=== PATIENT | female | born 1990 | race Two or more races ===

== ENCOUNTER 2016-05-07 14:00 | Emergency (ER) | payer OTHER ==
[2016-05-07 14:31] VITALS: TEMP 97.8; BMI 24.3
--- NOTE | 2016-05-07 15:26 | PDOC ---
History of Present Illness - General Chief Complaint: Pain, Acute Stated Complaint: PAIN/ DIFFICULTY URINATING Time Seen by Provider: 05/07/16 14:58 History Source: Patient Exam Limitations: No Limitations - History of Present Illness Initial Comments: CHIEF COMPLAINT: 26 y/o afebrile [id number] c/o lower pelvic pain and abnormal vaginal discharge. HISTORY OF PRESENT ILLNESS: The patient states she's had intermittent pelvic pain for the past 15 days. Today it became worse. She has also had some clear/ white vaginal discharge so she treated it with an OTC cream for 3 days with little relief. Her LMP was 10 days ago. She denies f/c, n/v/d, CP, SOB, back pain, hematuria, dysuria. Vital signs on arrival are within normal limits. REVIEW OF SYSTEMS: GENERAL/CONSTITUTIONAL: No fever/chills. No weakness. No weight change. GASTROINTESTINAL: +pelvic pain. No nausea, vomiting, diarrhea. GENITOURINARY: No dysuria, frequency, or change in urination. +white vaginal discharge. MUSCULOSKELETAL: No joint or muscle swelling or pain. No neck or back pain. SKIN: No rash or easy bruising. NEUROLOGIC: No headache, vertigo, loss of consciousness, or loss of sensation. PHYSICAL EXAM: GENERAL: The patient is awake, alert, and fully oriented, in no acute distress. She is well appearing and ambulatory. HEAD: Normal with no signs of trauma. ABDOMEN: Soft, non-distended, TTP of suprapubic and b/l pelvis. No rebound, guarding or rigidity. No masses. VAGINAL: NEUROLOGICAL: Normal speech, normal gait. CN II-XII grossly intact. SKIN: Warm, dry, normal turgor, no rashes or lesions noted. Past History - Past Medical History Allergies/Adverse Reactions: Allergies Allergy/AdvReac Type Severity Reaction Status Date / Time Penicillins Allergy Mild Verified 05/07/16 14:26 Home Medications: Ambulatory Orders Metronidazole [Flagyl -] 500 mg PO BID #14 tablet 05/07/16 Asthma: No Cancer: No Cardiac Disorders: No Diabetes: No HTN: No Seizures: No Thyroid Disease: No - Psycho/Social/Smoking Cessation Hx Suicidal Ideation: No Smoking History: Never smoked Have you smoked in the past 12 months: No Hx Alcohol Use: No Drug/Substance Use Hx: No Hx Substance Use Treatment: No *Physical Exam - Vital Signs Last Vital Signs Temp Pulse Resp BP Pulse Ox 97.8 F 71 19 121/78 100 05/07/16 14:27 05/07/16 14:27 05/07/16 14:27 05/07/16 14:27 05/07/16 14:27 Medical Decision Making - Medical Decision Making A/P: 26 y/o female with pelvic pain for 15 days and white vaginal discharge. Ultrasound ok Will give IM Toradol for pain. Will discharge to home with rx for metronidazole for BV. Instructed the patient to avoid drinking alcohol while taking it. Instructed the patient to take 600mg of Ibuprofen for pain with food every 6 hours and f/u with her [employer] [facility] [employer] (she has a scheduled appointment) on her scheduled appointment. Instructed her we will call her with STD results and instructed her to return to the ER with any worsening or concerning symptoms. The patient verbalizes understanding of all instructions, has no further questions and is awaiting discharge. *DC/Admit/Observation/Transfer Diagnosis at time of Disposition: Bacterial vaginosis - Discharge Dispostion Disposition: HOME Condition at time of disposition: Good - Patient Instructions Printed Discharge Instructions: DI for Bacterial Vaginosis Additional Instructions: Discharge Instructions: -Take antibiotics as prescribed; do not drink while taking the medication -Take 600mg of Ibuprofen every 6 hours for pain with food -Follow up with your [employer] [facility] [facility] [employer] as soon as possible -Return to the ER with any worsening or concerning symptoms Print Language: KINYARWANDA
[2016-05-07 15:42] LABS: URINE APPEARANCE CLEAR; URINE BILIRUBIN NEGATIVE (NEGATIVE); URINE BLOOD NEGATIVE (NEGATIVE); URINE COLOR STRAW; URINE GLUCOSE (UA) NEGATIVE (NEGATIVE); URINE KETONE NEGATIVE (NEGATIVE); URINE LEUK ESTERASE NEGATIVE (NEGATIVE); URINE NITRITE NEGATIVE (NEGATIVE); URINE PROTEIN NEGATIVE (NEGATIVE); URINE UROBILINOGEN NEGATIVE E.U./dl (0.2-1.0)
[2016-05-07] MEDS ORDERED: KETOROLAC TROMETHAMINE 60 MG/2 ML VIAL IM ONE (17:01)
[2016-05-07] MEDS ORDERED: metroNIDAZOLE 500 MG TABLET PO ONE (18:25)
[2016-05-07 18:45] VITALS: BP 122/74; PULSE 75
== END 2016-05-07 18:44 | disposition home or self-care (01) ==
LOC: JER 14:00
PROC: 3E0233Z Introduction of Anti-inflammatory into Muscle, Percutaneous Approach (ICD-10-PCS; principal; 2016-05-07)
DX: N76.0 Acute vaginitis (principal); B96.89 Other specified bacterial agents as the cause of diseases classified elsewhere
CPT/HCPCS: 36415; 76830-TC; 81003; 84703; 87086; 87186; 87491; 87591; 96372; 99283-25

== ENCOUNTER 2017-12-06 04:39 | Emergency (ER) | payer OTHER ==
--- NOTE | 2017-12-06 04:55 | PDOC ---
History of Present Illness - General Stated Complaint: HEADACHE Time Seen by Provider: 12/06/17 04:55 History Source: Patient Exam Limitations: No Limitations - History of Present Illness Initial Comments: 12/06/17 05:17 HPI and ROS performed via phone distributor advertising material - [id number]. 27 year old female with PMH headaches presenting to ED for headache since 2144 yesterday. She describes the headache as slowly progressing, originating while she was cooking food. She states that her headaches usually regress with Advil, but after she took an Advil PM last night when her headache began, her symptoms did not resolve. She admits to nausea, photophobia, sensitivity to sound, eye tingling, blurry vision. She denies fever, chills, vomiting, abdominal pain, chest pain, syncope, head injury. PCP - none Allergies - NKDA Denies nicotine use. Denies everyday etoh use. Denies illicit drug use. Past History - Past Medical History Allergies/Adverse Reactions: Allergies Allergy/AdvReac Type Severity Reaction Status Date / Time Penicillins Allergy Mild Verified 12/06/17 05:30 Home Medications: Ambulatory Orders NK [No Known Home Medication] 12/06/17 Asthma: No Cancer: No Cardiac Disorders: No Diabetes: No HTN: No Seizures: No Thyroid Disease: No - Surgical History Abdominal Surgery: Yes (liposuction) - Reproductive History Cervical CA: No Dysfunctional Uterine Bleeding: No Ectopic : No Endometrial CA: No Polycystic Ovaries: No Tubal Ligation: No - Immunization History Immunization Up to Date: No - Suicide/Smoking/Psychosocial Hx Smoking History: Never smoked Have you smoked in the past 12 months: No Hx Alcohol Use: No Drug/Substance Use Hx: No Substance Use Type: None Hx Substance Use Treatment: No Review of Systems - Review of Systems Able to Perform ROS?: Yes Comments:: 12/06/17 05:20 General: denies fever, chills, night sweats, generalized weakness. HEENT: admits to blurry vision and eye tingling. denies sore throat, rhinorrhea , ear pain. Heart: denies chest pain, palpitations, syncope, lower extremity swelling, diaphoresis. Respiratory: denies shortness of breath, cough, sputum production, hematemesis. Abdomen: admits to nausea. denies abdominal pain, vomiting, diarrhea, constipation, blood in stool. : denies dysuria, increased urinary frequency, hematuria, urinary incontinence , flank pain. Back: denies back pain, flank pain. Musculoskeletal: denies joint pain, muscle pain, joint swelling. Neurological: admits to headache, photophobia, phonophobia. denies dizziness, numbness, tingling, weakness. Skin: denies rash, laceration, abrasion. *Physical Exam - Physical Exam Comments: 12/06/17 05:22 Appearance: laying in bed. appears in pain but will laugh during neurological examination. HEENT: head is normocephalic, atraumatic. EOMI. PERRLA. Neck: supple. Full ROM. Heart: regular rhythm. no murmurs, rubs or gallops. No pericardial friction rub. Lungs: clear to auscultation bilaterally. no crackles, rhonchi or wheezing. no stridor. Abdomen: soft, nontender. normal bowel sounds. no rebound, guarding, masses. Extremities: Peripheral pulses intact and equal. No lower extremity edema. Neurological: Alert. Oriented x3. CN2-12 intact. 5/5 strength all extremities. Full sensation all extremities and bilateral face. Romberg negative. Finger to nose normal. Gait normal. Medical Decision Making - Medical Decision Making 12/06/17 05:23 27 year old female with PMH headaches presenting to ED for headache since 2144 yesterday. She states her headache began when she was cooking food. Non- alleviated with Advil PM at 2144 yesterday. Not described as maximal at onset, worsening over three hours. (+) N/photophobia/phonophobia/blury vision. Feels similar to prior, except that Advil has not alleviated her symptoms. Fully neurologically intact. Initial Vital Signs Temp Pulse Resp BP Pulse Ox 98.4 F 102 H 18 120/65 97 12/06/17 04:55 12/06/17 04:55 12/06/17 04:55 12/06/17 04:55 12/06/17 04:55 [facility] Subarachnoid Hemorrhage Rule For Headache - 0 Reglan ordered. Benadryl ordered. Tylenol ordered. IV fluids ordered. Pending UA/UC, urine test. 12/06/17 06:24 Pt reassessed by RN, states she is sleeping. UA negative. Urine test negative. Will reassess. Outpatient PCP appointment set up for pt for 12/11/17 at 0230 pm. 12/06/17 06:47 I spoke with the patient about the plan for care, with which she agrees. I explained the importance of following up with her primary care doctor and neurologist. I explained to her strict return precautions. Pt will be discharged. *DC/Admit/Observation/Transfer Diagnosis at time of Disposition: Headache - Discharge Dispostion Disposition: HOME Condition at time of disposition: Fair Decision to Admit order: No - Referrals Referrals: [facility] [place] [facility] [place] [Provider Group] Lizbeth Garcia MD [Staff Physician] - - Patient Instructions Printed Discharge Instructions: DI for Headache Additional Instructions: You were seen today for headache. You were given intravenous Reglan. You were given intravenous Benadryl. You were given intravenous Tylenol. You were given intravenous fluids. Your urine analysis was: normal. You do not have a urinary tract infection. Your urine test was: negative I have provided you with an appointment at the [facility] for Saturday12/11/17 at 0230 PM. Go to your appointment as instructed. Bring the paperwork given to you today to your appointment. I have provided a referral for a neurologist. Follow up with the neurologist within 7 days. Call their office today and make an appointment for as soon as possible. Tell them you were seen in the Emergency Department for your headache and that you were referred to them. I have provided you with a note to excuse you from work so that you can attend your appointment with the primary care doctor. Return to the Emergency Department for increasing headache, dizziness like the room is spinning, vomiting, weakness, numbness, tingling, passing out, decreased strength of your arms or legs, decreased sensation to your arms or legs, or any other new, worsening or concerning symptoms. Your care is not complete until you follow up with your primary care doctor and your neurologist. Hoy fuiste visto por dolor de song. Le dieron un Reglan intravenoso. Le dieron Benadryl por va intravenosa. Le dieron Tylenol intravenoso. Le dieron lquidos por va intravenosa. Vang anlisis de orina fue: normal. Usted no tiene ramila infeccin del tracto urinario. Vang prueba de embarazo en la orina fue: negativa [place]na [place] proporcionado ramila hawa en el [facility] el mircoles 08/14/17 a las 0230 PM. Vaya a vang hawa segn las instrucciones. Traiga la documentacin que jyotsna entreg hoy a vang hawa. Claude proporcionado ramila referencia para un neurlogo. Rush un seguimiento con el neurlogo dentro de los 7 luna. Llame a avng oficina hoy y rush ramila hawa lo antes posible. Dgales que lo vieron en el Departamento de Emergencia por vang dolor de song y que lo remitieron a usted. Jyotsna proporcion ramila nota para excusarle del trabajo para que pueda asistir a vang hawa con el mdico de atencin primaria. Regrese al servicio de urgencias por aumento de dolor de song, mareos pedro si la habitacin estuviera girando, vmitos, debilidad, entumecimiento, hormigueo, desmayo, disminucin de la fuerza de dunia brazos o piernas, disminucin de la sensacin en dunia brazos o piernas, o cualquier otro empeoramiento nuevo o sobre los sntomas. Vang cuidado no est completo hasta que rush un seguimiento con vang mdico de atencin primaria y vang neurlogo. Print Language: UZBEK - Post Discharge Activity Forms/Work/School Notes: Back to Work
--- NOTE | 2017-12-06 05:02 | PDOC ---
Attending Attestation - Resident Resident Name: Ludivina Meek - ED Attending Attestation I have performed the following: I have examined & evaluated the patient, The case was reviewed & discussed with the resident, I agree w/resident's findings & plan, Exceptions are as noted - HPI HPI: 12/07/17 05:32 Pt presents to the ER with a gradual onset headache No trauma Pt unwilling to speak to me - Physicial Exam PE: 12/07/17 05:32 Please refer to resident physical examination - Medical Decision Making 12/07/17 05:32 Pt presents with a gradual onset of headache Took NSAID with no improvement UA, HCG sent Meds given Pt reassessed 12/07/17 05:34
[2017-12-06] MEDS ORDERED: SODIUM CHLORIDE 1,000 ML IV STA (05:16)
[2017-12-06] MEDS ORDERED: METOCLOPRAMIDE HCL INJECTION 10 MG/2 ML VIAL IVPUSH ONE (05:16)
[2017-12-06] MEDS ORDERED: ACETAMINOPHEN 1000 MG/100 ML VIAL (NON FORMULARY) IVPB ONE (05:16)
[2017-12-06] MEDS ORDERED: METOCLOPRAMIDE HCL INJECTION 10 MG/2 ML VIAL ONE (05:30)
[2017-12-06] MEDS ORDERED: ACETAMINOPHEN INJECTION 100 ML IVPB ONE (05:30)
[2017-12-06 05:31] VITALS: BP 120/65; PULSE 102; TEMP 98.4; BMI 22.8
[2017-12-06 05:52] LABS: URINE APPEARANCE CLEAR; URINE BILIRUBIN NEGATIVE (<2.0 mg/dL); URINE COLOR COLORLESS; URINE GLUCOSE (UA) NEGATIVE (NEGATIVE); URINE KETONE NEGATIVE (NEGATIVE); URINE LEUK ESTERASE NEGATIVE (NEGATIVE); URINE NITRITE NEGATIVE (NEGATIVE); URINE PROTEIN NEGATIVE (NEGATIVE); URINE UROBILINOGEN NEGATIVE mg/dL (0.2-1.0)
[2017-12-06 05:55] LABS: HCG,QUALITATIVE URINE Negative
== END 2017-12-06 07:06 | disposition home or self-care (01) ==
LOC: JER 04:39
PROC: 3E033GC Introduction of Other Therapeutic Substance into Peripheral Vein, Percutaneous Approach (ICD-10-PCS; principal; 2017-12-06)
PROC: 3E0337Z Introduction of Electrolytic and Water Balance Substance into Peripheral Vein, Percutaneous Approach (ICD-10-PCS; 2017-12-06)
PROC: 3E033NZ Introduction of Analgesics, Hypnotics, Sedatives into Peripheral Vein, Percutaneous Approach (ICD-10-PCS; 2017-12-06)
DX: R51 Headache (principal)
CPT/HCPCS: 81003; 84703; 87086; 96374; 96375; 99281-25; 99282-25; J0131; J7030

== ENCOUNTER 2018-02-07 08:09 | Emergency (ER) | payer OTHER ==
[2018-02-07 08:24] VITALS: TEMP 98.1; BMI 23.9
--- NOTE | 2018-02-07 09:07 | PDOC ---
History of Present Illness - General Chief Complaint: Vaginal Sxs Stated Complaint: ABD PAIN Time Seen by Provider: 02/07/18 08:45 History Source: Patient - History of Present Illness Initial Comments: 02/07/18 09:57 The patient is a 27 year old female with no reported PMH who presents to the ED c/o 3 days of abdominal pain, dysuria and 4 days of constipation. Patient states the pain is intermittent, and radiates from her R lower quadrant to her groin. Endorse associated dysuria w/o hematuria or increased urgency/ frequency. Notes h/o STI two month previous for which she was treated. States she is sexually active with one partner and we was evaluated for STI's since her treatment for her STI. LMP was 01/23 and states she uses condoms consistently. Patient also c/o 4 days of constipation with her last BM four days previous. Denies any recent dietary changes. H/o previous constipation. NKDA Surgical: C/S x2 Social: denies toxic habits PMD: None- will refer to IM resident clinic Past History - Past Medical History Allergies/Adverse Reactions: Allergies Allergy/AdvReac Type Severity Reaction Status Date / Time No Known Allergies Allergy Verified 02/07/18 08:19 Home Medications: Ambulatory Orders Mineral Oil/Petrolat,Wht/Water [Hydrocerin Cream] 454 gm TP BID #1 tube Psyllium Husk [Metamucil] 425 gm PO DAILY PRN #1 powder 02/07/18 Asthma: No Cancer: No Cardiac Disorders: No COPD: No Diabetes: No HTN: No Seizures: No Thyroid Disease: No - Surgical History Abdominal Surgery: Yes (liposuction) - Reproductive History Cervical CA: No Dysfunctional Uterine Bleeding: No Ectopic : No Endometrial CA: No Polycystic Ovaries: No Tubal Ligation: No - Immunization History Immunization Up to Date: No - Suicide/Smoking/Psychosocial Hx Smoking History: Never smoked Have you smoked in the past 12 months: No Hx Alcohol Use: No Drug/Substance Use Hx: No Substance Use Type: None Hx Substance Use Treatment: No Review of Systems - Review of Systems Constitutional: No: Chills, Fever HEENTM: No: Blurred Vision, Double Vision Respiratory: No: Cough, Shortness of Breath Cardiac (ROS): No: Chest Pain, Lightheadedness, Palpitations, Syncope ABD/GI: Yes: Constipated. No: Diarrhea, Nausea, Vomiting : Yes: Dysuria. No: Frequency, Hematuria, Urgency *Physical Exam - Vital Signs Last Vital Signs Temp Pulse Resp BP Pulse Ox 98.1 F 71 16 101/63 99 02/07/18 08:21 02/07/18 08:21 02/07/18 08:21 02/07/18 08:21 02/07/18 08:21 - Physical Exam General Appearance: Yes: Nourished, Appropriately Dressed HEENT: positive: Normal Voice, Hearing Grossly Normal Neck: positive: Trachea midline, Supple Respiratory/Chest: positive: Lungs Clear, Normal Breath Sounds Cardiovascular: positive: S1, S2. negative: Edema, Murmur Female Pelvic Exam: positive: other (Cervical os closed, physiologic discharge, IUD string ) Gastrointestinal/Abdominal: positive: Normal Bowel Sounds, Soft. negative: Rebound, Tenderness, Hernia, Mass Rectal Exam: negative: hemorrhoids Musculoskeletal: negative: CVA Tenderness (R), CVA Tenderness (L) Extremity: positive: Normal Capillary Refill, Normal Inspection Integumentary: positive: Dry, Warm ED Treatment Course - LABORATORY CBC & Chemistry Diagram: 02/07/18 10:21 02/07/18 10:21 Medical Decision Making - Medical Decision Making 02/07/18 10:08 27 year old female with intermittent R sided abdominal pain that radiates to her groin w/dysuria. Frontal diagnosis: ovarian torsion, ectopic , UTI , STI including G/C with subsequent PID, less likely viral gastritis, acute appendicitis (no RLQ TTP) Will obtain basic labs, pre-op labs, G/C. Pelvic exam and rectal exam pending. Reassess. 02/07/18 10:40 CMT on pelvic exam, physiologic discharge No external hemorrhoid visualized 02/07/18 11:29 CBC shows no leukocytosis G/C pending TVUS pending 02/07/18 15:16 CMP unremarkable TVUS shows R sided ruptured ovarian cyst 0.8 x 1.6 cm. Patient symptomatically improved. Will discharge home with return precautions, referral to primary care. I discussed the physical exam findings, ancillary test results and final diagnoses with the patient. I answered all of the patient's questions. The patient was satisfied with the care received and felt comfortable with the discharge plan and treatment plan. The patient will return to the Emergency Department with any new, persistent or worsening symptoms. *DC/Admit/Observation/Transfer Diagnosis at time of Disposition: Ovarian cyst rupture - Discharge Dispostion Disposition: HOME Condition at time of disposition: Good Decision to Admit order: No - Prescriptions Prescriptions: Mineral Oil/Petrolat,Wht/Water [Hydrocerin Cream] 454 gm TP BID #1 tube Psyllium Husk [Metamucil] 425 gm PO DAILY PRN #1 powder PRN Reason: Constipation - Referrals Schedule a call back: please call for G/C results - Patient Instructions Printed Discharge Instructions: DI for Ovarian Cyst Additional Instructions: You were evaluated today for abdominal pain and constipation. Your labs showed no concerning findings. Your HIV test was negative. Your gonorrhea and chlamydia tests are pending. You will be called with the results next week or you can call the hospital for results on or after February 13, 2018. An ultrasound of your ovaries showed an ovarian cyst that opened up which is likely the cause of your pain. You can take Tylenol (up to 4000 mg daily) for your pain. An appointment has been made with with Dr. Katarzyna Be (she speaks [place]) to establish primary care. Your appointment is SaturdayFebruary 11 @ 9 a.[address]. at [address] [place] [address]. It is very important that you attend this appointment. Return to the Emergency Department for any new/worsening/concerning symptoms. Hoy te evaluaron por dolor abdominal y estreimiento. Alayna laboratorios no mostraron hallazgos preocupantes. Aguilar prueba de VIH fue negativa. Alayna pruebas de gonorrea y clamidia estn pendientes. Se le llamar con los resultados la prxima semana o puede llamar al hospital para obtener resultados a partir del 2017. Ramila ecografa de los ovarios mostr un quiste ovrico que se abri y probablemente sea la causa de aguilar dolor. Puede sami Tylenol (hasta 4000 mg al da) para el dolor. Se briceno hecho ramila hawa con la Dra. Katarzyna Be (habla espaol) para establecer la atencin primaria. Aguilar hawa es el catina 6 noviembre a las [address] [place] [address]. Es muy importante que asista a esta hawa. Regrese al Departamento de Emergencias para cualquier sntoma nuevo / que empeora / relacionado. - Post Discharge Activity
--- NOTE | 2018-02-07 10:41 | PDOC ---
Attending Attestation - Resident Resident Name: Anitha Monroe - ED Attending Attestation I have performed the following: I have examined & evaluated the patient, The case was reviewed & discussed with the resident, I agree w/resident's findings & plan, Exceptions are as noted - HPI HPI: 02/07/18 10:43 Ms Gely Diallo is a 27 yo F p/w abd pain RLQ to groin Pain is described as sharp, it is intermittent, No fever or chills (+) dysuria, no hematuria Pt has had STI approximately 1 month ago, s/p treatment (Also partner was treated) 02/07/18 12:37 - Physicial Exam PE: 02/07/18 10:41 Pt is awake and alert RRR CTA No abd tenderness Pelvic examination per Dr Monroe - Medical Decision Making 02/07/18 12:45 DD: Ruptured ov cyst, torsion, PID, / ectopic Will do: Labs UA TV US Re assess 02/07/18 12:46 Laboratory Tests 02/07/18 02/07/18 02/07/18 10:21 10:21 10:21 WBC 4.3 Hgb 10.0 L Hct 33.3 D Plt Count 349 Anion Gap 9 Creatinine 0.5 L Serum , Qual Negative Urine Blood Urine Nitrite Ur Leukocyte Esterase Urine HCG, Qual 02/07/18 11:00 WBC Hgb Hct Plt Count Anion Gap Creatinine Serum , Qual Urine Blood Negative Urine Nitrite Negative Ur Leukocyte Esterase Negative Urine HCG, Qual Negative TV US demonstrates 02/07/18 12:47 Partially ruptured right ovarian cyst Will plan to d/C follow up with PMD follow up with manager gyn *DC/Admit/Observation/Transfer Diagnosis at time of Disposition: Ovarian cyst rupture - Discharge Dispostion Disposition: HOME Condition at time of disposition: Good - Prescriptions Prescriptions: Psyllium Husk [Metamucil] 425 gm PO DAILY PRN #1 powder PRN Reason: Constipation - Referrals Schedule a call back: please call for G/C results - Patient Instructions Printed Discharge Instructions: DI for Ovarian Cyst Additional Instructions: You were evaluated today for abdominal pain and constipation. Your labs showed no concerning findings. Your HIV test was negative. Your gonorrhea and chlamydia tests are pending. You will be called with the results next week or you can call the hospital for results on or after February 13, 2018. An ultrasound of your ovaries showed an ovarian cyst that opened up which is likely the cause of your pain. You can take Tylenol (up to 4000 mg daily) for your pain. Make an appointment with Dr. Jarrod Sandoval to establish primary care. Return to the Emergency Department for any new/worsening/concerning symptoms. Hoy te evaluaron por dolor abdominal y estreimiento. Alayna laboratorios no mostraron hallazgos preocupantes. Vang prueba de VIH fue negativa. Alayna pruebas de gonorrea y clamidia estn pendientes. Se le llamar con los resultados la prxima semana o puede llamar al hospital para obtener resultados a partir del 2017. Yue ecografa de los ovarios mostr un quiste ovrico que se abri y probablemente sea la causa de vang dolor. Puede sami Tylenol (hasta 4000 mg al da) para el dolor. Danish yue hawa con el Dr. Jarrod Sandoval para establecer la atencin primaria. Regrese al Departamento de Emergencias para cualquier sntoma nuevo / que empeora / relacionado. - Post Discharge Activity
[2018-02-07 11:01] LABS: ALBUMIN 4.2 g/dl (3.4-5.0); ALK PHOS 62 U/L (45-117); ANION GAP 9 MMOL/L (8-16); BILIRUBIN,TOTAL 0.4 mg/dL (0.2-1); BLOOD UREA NITROGEN 14 mg/dL (7-18); CALCIUM 8.6 mg/dL (8.5-10.1); CHLORIDE 108 mmol/L (98-107); CO2 22 mmol/L (21-32); CREATININE 0.5 mg/dL (0.55-1.3); GLUCOSE,RANDOM 75 mg/dL (74-106); POTASSIUM 4.4 mmol/L (3.5-5.1); SGOT/AST 21 U/L (15-37); SGPT/ALT 18 U/L (13-61); SODIUM 139 mmol/L (136-145); TOT PROT 8.1 g/dl (6.4-8.2)
[2018-02-07 11:02] LABS: INR 0.94 (0.83-1.09); PROTHROMBIN TIME (PATIENT) 11.1 SEC (9.7-13.0)
[2018-02-07 11:04] LABS: ACTIVATED PTT 27.6 SECONDS (25.2-36.5)
[2018-02-07 11:14] LABS: BASO % 0.9 % (0-2.0); EOS % 2.4 % (0-4.5); HEMATOCRIT 33.3 % (32.4-45.2); LYMPH % 33.6 % (8-40); MCHC 30.2 g/dl (32.0-36.0); MEAN CELL VOLUME 66.2 fl (80-96); MONO % 5.9 % (3.8-10.2); NEUT % 57.2 % (42.8-82.8); PLATELET COUNT 349 K/MM3 (134-434); RBC 5.03 M/mm3 (3.60-5.2); RDW 18.2 % (11.6-15.6); WHITE BLOOD COUNT 4.3 K/mm3 (4.0-10.0)
[2018-02-07 11:36] LABS: HCG,QUALITATIVE URINE Negative
[2018-02-07 11:50] LABS: URINE APPEARANCE CLEAR; URINE BILIRUBIN NEGATIVE (<2.0 mg/dL); URINE COLOR LTYELLOW; URINE GLUCOSE (UA) NEGATIVE (NEGATIVE); URINE KETONE NEGATIVE (NEGATIVE); URINE LEUK ESTERASE NEGATIVE (NEGATIVE); URINE NITRITE NEGATIVE (NEGATIVE); URINE PROTEIN NEGATIVE (NEGATIVE); URINE UROBILINOGEN NEGATIVE mg/dL (0.2-1.0)
[2018-02-07 13:52] VITALS: BP 110/96; PULSE 76
[2018-02-07 18:29] LABS: ANISOCYTOSIS 1+; PLATELET ESTIMATE ADEQUATE
== END 2018-02-07 13:49 | disposition home or self-care (01) ==
LOC: JER 08:09
DX: N83.209 Unspecified ovarian cyst, unspecified side (principal)
CPT/HCPCS: 36415; 76830-TC; 80053; 81003; 84703; 85025; 85610; 85730; 86850; 86900; 86901; 87086; 87389; 87491; 87591; 87661; 99282-25

== ENCOUNTER 2018-10-15 06:38 | Emergency (ER) | payer SELFPAY ==
[2018-10-15 07:15] VITALS: TEMP 98.3; BMI 24.7
--- NOTE | 2018-10-15 07:36 | PDOC ---
History of Present Illness - General Chief Complaint: Edema Stated Complaint: INJURY/FINGER Time Seen by Provider: 10/15/18 07:19 History Source: Patient, Home Specialist Used (#[id number]) - History of Present Illness Initial Comments: 10/15/18 08:38 Patient with no significant past medical history present with complaint of left hand pain with swelling to left middle finger status post a friend pulling on the hand in the bar yesterday. Patient report moderate swelling around finger of left middle finger. Patient reported increased pain when attempting to remove ring from finger. Denies numbness or tingling sensation. Denies any other symptoms Timing/Duration: 4-6 hours Past History - Past Medical History Allergies/Adverse Reactions: Allergies Allergy/AdvReac Type Severity Reaction Status Date / Time No Known Allergies Allergy Verified 10/15/18 07:10 Home Medications: Ambulatory Orders Ibuprofen 800 mg PO Q8H PRN #20 tablet 10/15/18 Asthma: No Cancer: No Cardiac Disorders: No COPD: No Diabetes: No HTN: No Seizures: No Thyroid Disease: No - Surgical History Abdominal Surgery: Yes (liposuction) - Reproductive History Cervical CA: No Dysfunctional Uterine Bleeding: No Ectopic : No Endometrial CA: No Polycystic Ovaries: No Tubal Ligation: No - Immunization History Immunization Up to Date: No - Suicide/Smoking/Psychosocial Hx Smoking History: Unknown if ever smoked Have you smoked in the past 12 months: No Hx Alcohol Use: No Drug/Substance Use Hx: No Substance Use Type: None Hx Substance Use Treatment: No Review of Systems - Review of Systems Able to Perform ROS?: Yes Is the patient limited Liberian proficient: No Constitutional: No: Malaise, Weakness HEENTM: No: Symptoms Reported Respiratory: No: Symptoms reported Cardiac (ROS): No: Symptoms Reported ABD/GI: No: Symptoms Reported Musculoskeletal: Yes: Symptoms Reported, See HPI, Joint Swelling (left middle finger), Muscle Pain (left hand and middle finger) Neurological: No: Numbness, Paresthesia, Tingling All Other Systems: Reviewed and Negative *Physical Exam - Vital Signs Last Vital Signs Temp Pulse Resp BP Pulse Ox 98.3 F 85 18 130/68 98 10/15/18 07:10 10/15/18 07:10 10/15/18 07:10 10/15/18 07:10 10/15/18 07:10 - Physical Exam Comments: 10/15/18 08:41 GENERAL: Well developed, well nourished. Awake and alert in moderate acute distress. CARDIOVASCULAR: Regular rate and rhythm. No murmurs, rubs, or gallops. PULMONARY: No evidence of respiratory distress. MUSCULOSKELETAL : moderate tenderness with swelling to left middle finger. mild tenderness to dorsal aspect of left hand. no visible deformity SKIN: Warm and dry. Normal capillary refill. moderate swelling to middle and distal phalange of left middle finger distal to finger ring NEUROLOGICAL: Alert, awake, appropriate. No motor deficits in the lower extremities. Gait is normal without ataxia. PSYCHIATRIC: Cooperative. Good eye contact. Appropriate mood and affect. General Appearance: Yes: Nourished, Appropriately Dressed, Mild Distress Medical Decision Making - Medical Decision Making 10/15/18 08:39 Patient with no significant past medical history present with complaint of left hand pain with swelling to left middle finger status post a friend pulling on the hand in the bar yesterday. Patient report moderate swelling around finger of left middle finger. Patient reported increased pain when attempting to remove ring from finger. Denies numbness or tingling sensation. Denies any other symptoms Exam significant for moderate swelling to whole left middle finger with mild tenderness to MCP and dorsal aspect of left hand. Multiple attempts made to remove ring finger but unsuccessful due to severe pain to foot patient from swelling. Digital block to left middle finger given with 2 mL 1% lidocaine. Ice applied to finger. Will attempt after 20 minutes 10/15/18 09:14 re-attempt to remove ring successful with rebreather string. Toradol 60mg IM ordered for pain. x-ray of left hand and middle finger ordered to r/o acute pathology 10/15/18 10:06 x-ray of left hand and finger shows no displaced fracture of middle phalange of left middle finger. mother of patient report patient had dropped a cabinet on the finger 2 days ago. Patient placed in finger splint. Rx for motrin given for pain. Patient referred to follow-up with hand orthopedics as soon as possible 10/15/18 10:08 Patient stable for discharge *DC/Admit/Observation/Transfer Diagnosis at time of Disposition: Fracture of phalanx of left middle finger Qualifiers: Encounter type: initial encounter Fracture type: closed Phalanx: distal Fracture alignment: nondisplaced Qualified Code(s): S62.663A - Nondisplaced fracture of distal phalanx of left middle finger, initial encounter for closed fracture Injury of left hand Qualifiers: Encounter type: initial encounter Qualified Code(s): S69.92XA - Unspecified injury of left wrist, hand and finger(s), initial encounter - Discharge Dispostion Disposition: HOME Condition at time of disposition: Stable Decision to Admit order: No - Prescriptions Prescriptions: Ibuprofen 800 mg PO Q8H PRN #20 tablet PRN Reason: pain - Referrals Referrals: Musa Rogers MD [Staff Physician] - - Patient Instructions Printed Discharge Instructions: Finger Fracture, DI for Finger Fracture Additional Instructions: x-ray of your hand shows fracture of left middle finger. Keep finger splint on until orthopedics follow-up. Take prescribed motrin as needed for pain. Apply hot compress to finger and hand as needed for swelling. Follow-up with referred orthopedics Print Language: YAKUT - Post Discharge Activity
[2018-10-15] MEDS ORDERED: KETOROLAC TROMETHAMINE 60 MG/2 ML VIAL IM ONE (09:06)
[2018-10-15 10:05] VITALS: BP 125/43; PULSE 82
== END 2018-10-15 10:05 | disposition home or self-care (01) ==
LOC: JER 06:38
PROC: 2W3KX1Z Immobilization of Left Finger using Splint (ICD-10-PCS; principal; 2018-10-15)
PROC: 3E0233Z Introduction of Anti-inflammatory into Muscle, Percutaneous Approach (ICD-10-PCS; 2018-10-15)
PROC: 3E0233Z Introduction of Anti-inflammatory into Muscle, Percutaneous Approach (ICD-10-PCS; 2018-10-15)
DX: S62.663A Nondisplaced fracture of distal phalanx of left middle finger, initial encounter for closed fracture (principal); X58.XXXA Exposure to other specified factors, initial encounter; Y93.89 Activity, other specified; Y92.511 Restaurant or cafe as the place of occurrence of the external cause; S69.92XA Unspecified injury of left wrist, hand and finger(s), initial encounter
CPT/HCPCS: 73130-TC-LT-FY; 73140-TC-LT-FY; 99282-25

== ENCOUNTER 2018-11-19 14:03 | Emergency (ER) | payer SELFPAY | END 2018-11-19 17:14 | disposition home or self-care (01) | LOC: JERFT 14:03 ==

== ENCOUNTER 2020-04-11 14:14 | Emergency (ER) | payer OTHER ==
[2020-04-11 14:24] VITALS: BMI 25.2
[2020-04-11] MEDS ORDERED: ACETAMINOPHEN INJECTION 100 ML IVPB ONE (15:04)
[2020-04-11] MEDS ORDERED: SODIUM CHLORIDE 1,878 ML IV ONE (15:15)
[2020-04-11] MEDS ORDERED: ACETAMINOPHEN 1000 MG/100 ML VIAL (NON FORMULARY) IVPB ONE (15:16)
[2020-04-11] MEDS ORDERED: ONDANSETRON 4 MG/2 ML VIAL IVPUSH ONE (15:59)
[2020-04-11 16:07] LABS: EOS % 0.5 % (0-4.5); HEMATOCRIT 33.3 % (32.4-45.2); HEMOGLOBIN 10.5 GM/dL (10.7-15.3); LYMPH % 19.5 % (8-40); MCH 21.3 pg (25.7-33.7); MCHC 31.4 g/dl (32.0-36.0); MONO % 13.4 % (3.8-10.2); NEUT % 65.6 % (42.8-82.8); PLATELET COUNT 259 K/MM3 (134-434); RDW 20.1 % (11.6-15.6); WHITE BLOOD COUNT 2.8 K/mm3 (4.0-10.0)
[2020-04-11 16:08] LABS: VENOUS BASE EXCESS -2.4 mmol/L (-2-2); VENOUS O2 SATURATION 37.6 % (70-80); VENOUS PCO2 30.5 mmHg (38-52); VENOUS PH 7.449 (7.310-7.410)
[2020-04-11 16:16] LABS: INR 0.99 (0.83-1.09); PROTHROMBIN TIME (PATIENT) 12.2 SEC (9.7-13.0)
[2020-04-11 16:19] LABS: ACTIVATED PTT 27.2 SECONDS (25.2-36.5)
[2020-04-11 16:46] LABS: CHLORIDE 109 mmol/L (98-107); POTASSIUM 4.2 mmol/L (3.5-5.1); SODIUM 139 mmol/L (136-145)
[2020-04-11 16:47] LABS: CALCIUM 8.6 mg/dL (8.5-10.1)
[2020-04-11 16:48] LABS: ALBUMIN 3.9 g/dl (3.4-5.0); ANION GAP 8 MMOL/L (8-16); BLOOD UREA NITROGEN 7.9 mg/dL (7-18); CO2 22 mmol/L (21-32); GLUCOSE,RANDOM 80 mg/dL (74-106)
[2020-04-11 16:51] LABS: CREATININE 0.8 mg/dL (0.55-1.3); SGOT/AST 28 U/L (15-37); SGPT/ALT 27 U/L (13-61)
[2020-04-11 16:52] LABS: ANISOCYTOSIS 2+; LDH 231 U/L (84-246); MACROCYTOSIS 0; PLATELET ESTIMATE NORMAL; TARGET CELLS 1+
[2020-04-11 16:53] LABS: BILIRUBIN,TOTAL 0.3 mg/dL (0.2-1); TOT PROT 7.8 g/dl (6.4-8.2)
[2020-04-11 16:54] LABS: ALK PHOS 72 U/L (45-117)
[2020-04-11] MEDS ORDERED: predniSONE 20 MG TABLET (UD) ONE (17:10)
[2020-04-11] MEDS ORDERED: LACTATED RINGERS SOLUTION 1000 ML INFUS.BAG IV ONE (17:17)
[2020-04-11] MEDS ORDERED: LIDOCAINE 5% TOPICAL PATCH TP ONE (18:05)
[2020-04-11] MEDS ORDERED: LIDOCAINE 5% TOPICAL PATCH ONE (19:46)
[2020-04-11] MEDS ORDERED: IBUPROFEN 600 MG TABLET (FP) PO ONE ×2 (19:51→19:55)
[2020-04-11 19:52] VITALS: BP 127/89; PULSE 89; TEMP 98.7
[2020-04-12] MEDS ORDERED: LIDOCAINE PATCH REMOVAL MC SCH (06:00)
== END 2020-04-11 20:00 | disposition home or self-care (01) ==
LOC: JER 14:14
PROC: 3E0333Z Introduction of Anti-inflammatory into Peripheral Vein, Percutaneous Approach (ICD-10-PCS; principal; 2020-04-11)
PROC: 3E0337Z Introduction of Electrolytic and Water Balance Substance into Peripheral Vein, Percutaneous Approach (ICD-10-PCS; 2020-04-11)
DX: U07.1 COVID-19 (principal)
CPT/HCPCS: 36415; 70450-TC; 71045-TC-FY; 80053; 82728; 82803; 83605; 83615; 84484; 84703; 85025; 85610; 85730; 86140; 87040; 93005; 93010; 99285-25; C9803; J0131; U0003

== ENCOUNTER 2020-04-14 00:04 | Emergency (ER) | payer OTHER ==
[2020-04-14 00:13] VITALS: TEMP 98.6; BMI 27.4
[2020-04-14] MEDS ORDERED: SODIUM CHLORIDE 0.9% 500 ML INFUS.BAG IV ONE (01:09)
[2020-04-14] MEDS ORDERED: ACETAMINOPHEN 1000 MG/100 ML BAG IVPB ONE (01:09)
[2020-04-14] MEDS ORDERED: ACETAMINOPHEN INJECTION 100 ML IVPB ONE (01:18)
[2020-04-14 02:04] LABS: BASO % 0.6 % (0-2.0); EOS % 1.2 % (0-4.5); HEMATOCRIT 36.9 % (32.4-45.2); HEMOGLOBIN 11.6 GM/dL (10.7-15.3); LYMPH % 31.8 % (8-40); MCH 21.5 pg (25.7-33.7); MCHC 31.4 g/dl (32.0-36.0); MEAN CELL VOLUME 68.6 fl (80-96); MEAN PLT VOLUME 9.6 fl (7.5-11.1); MONO % 7.5 % (3.8-10.2); NEUT % 58.9 % (42.8-82.8); PLATELET COUNT 265 K/MM3 (134-434); RBC 5.37 M/mm3 (3.60-5.2); RDW 20.2 % (11.6-15.6); WHITE BLOOD COUNT 5.3 K/mm3 (4.0-10.0)
[2020-04-14 02:17] LABS: SODIUM 137 mmol/L (136-145)
[2020-04-14 02:19] LABS: CALCIUM 8.7 mg/dL (8.5-10.1)
[2020-04-14 02:20] LABS: ALBUMIN 4.1 g/dl (3.4-5.0); BLOOD UREA NITROGEN 17.5 mg/dL (7-18); CO2 24 mmol/L (21-32); GLUCOSE,RANDOM 97 mg/dL (74-106)
[2020-04-14 02:23] LABS: CREATININE 0.8 mg/dL (0.55-1.3); SGOT/AST 33 U/L (15-37); SGPT/ALT 28 U/L (13-61)
[2020-04-14 02:25] LABS: BILIRUBIN,TOTAL 0.2 mg/dL (0.2-1); TOT PROT 8.1 g/dl (6.4-8.2)
[2020-04-14 02:26] LABS: ALK PHOS 62 U/L (45-117)
[2020-04-14 02:28] LABS: N-TERMINAL BNP 5.2 pg/ml (5-125)
[2020-04-14 02:29] LABS: EPI CELLS >36 /uL (0-25.1); HCG,QUALITATIVE URINE Negative; HYALINE CASTS 3 /uL (0-3.1); PH,URINE 6.5 (5.0-8.0); URINE APPEARANCE CLOUDY; URINE BACTERIA 3673 /uL (0-1359); URINE BILIRUBIN NEGATIVE (NEGATIVE); URINE COLOR YELLOW; URINE GLUCOSE (UA) NEGATIVE (NEGATIVE); URINE KETONE TRACE (NEGATIVE); URINE LEUK ESTERASE 2+ (NEGATIVE); URINE NITRITE NEGATIVE (NEGATIVE); URINE PROTEIN NEGATIVE (NEGATIVE); URINE RBC 6 /uL (0-23.9); URINE UROBILINOGEN 0.2 mg/dL (0.2-1.0); URINE WBC 64 /uL (0-25.8)
[2020-04-14 02:43] LABS: ANION GAP 7 MMOL/L (8-16); CHLORIDE 106 mmol/L (98-107)
[2020-04-14 03:09] VITALS: BP 114/76; PULSE 74
[2020-04-14] MEDS ORDERED: METOCLOPRAMIDE HCL INJECTION 10 MG/2 ML VIAL IVPUSH ONE (04:00)
== END 2020-04-14 04:20 | disposition home or self-care (01) ==
LOC: JER 00:04
PROC: 3E033NZ Introduction of Analgesics, Hypnotics, Sedatives into Peripheral Vein, Percutaneous Approach (ICD-10-PCS; principal; 2020-04-14)
PROC: 3E033GC Introduction of Other Therapeutic Substance into Peripheral Vein, Percutaneous Approach (ICD-10-PCS; 2020-04-14)
DX: Z11.52 Encounter for screening for COVID-19 (principal); N39.0 Urinary tract infection, site not specified
CPT/HCPCS: 36415; 71275-TC; 80053; 81003; 82550; 83880; 84484; 84703; 85025; 85379; 87077; 87086; 87186; 93005; 93010; 99284-25; J0131

== ENCOUNTER 2021-01-11 17:35 | Emergency (ER) | payer OTHER ==
[2021-01-11 17:41] VITALS: TEMP 98; BMI 28.3
[2021-01-11] MEDS ORDERED: LIDOCAINE VISCOUS 2% ORAL/TOP 15 ML UNIT-DOSE CUP MM ONE (18:45)
[2021-01-11] MEDS ORDERED: ONDANSETRON 4 MG/2 ML VIAL IVPUSH ONE (18:45)
[2021-01-11] MEDS ORDERED: MAG HYDROX/AL HYDROX/SIMETH 30 ML UNIT-DOSE CUP PO ONE (18:45)
[2021-01-11] MEDS ORDERED: SODIUM CHLORIDE 1,000 ML IV STA (18:45)
[2021-01-11] MEDS ORDERED: FAMOTIDINE 20 MG/50 ML IVPB 20 MG/50 ML MG IVPB ONE ×2 (18:45→19:27)
[2021-01-11] MEDS ORDERED: LIDOCAINE VISCOUS 2% ORAL/TOP 15 ML UNIT-DOSE CUP ONE (19:26)
[2021-01-11] MEDS ORDERED: MAG HYDROX/AL HYDROX/SIMETH 30 ML UNIT-DOSE CUP ONE (19:27)
[2021-01-11] MEDS ORDERED: ONDANSETRON 4 MG/2 ML VIAL ONE (19:29)
[2021-01-11 19:31] LABS: BASO % 0.5 % (0-2.0); HEMATOCRIT 37.3 % (32.4-45.2); HEMOGLOBIN 12.1 GM/dL (10.7-15.3); LYMPH % 36.2 % (8-40); MCH 24.2 pg (25.7-33.7); MCHC 32.3 g/dl (32.0-36.0); MEAN PLT VOLUME 8.1 fl (7.5-11.1); MONO % 8.5 % (3.8-10.2); NEUT % 53.8 % (42.8-82.8); PLATELET COUNT 252 10^3/uL (134-434); RBC 4.98 M/mm3 (3.60-5.2); RDW 17.4 % (11.6-15.6)
[2021-01-11 19:33] LABS: EPI CELLS >36 /uL (0-25.1); HYALINE CASTS 3 /uL (0-3.1); PH,URINE 5.5 (5.0-8.0); URINE APPEARANCE CLOUDY; URINE BACTERIA 560 /uL (0-1359); URINE BILIRUBIN NEGATIVE (NEGATIVE); URINE COLOR YELLOW; URINE GLUCOSE (UA) NEGATIVE (NEGATIVE); URINE KETONE NEGATIVE (NEGATIVE); URINE LEUK ESTERASE 2+ (NEGATIVE); URINE NITRITE NEGATIVE (NEGATIVE); URINE PROTEIN NEGATIVE (NEGATIVE); URINE RBC 15 /uL (0-23.9); URINE UROBILINOGEN 0.2 mg/dL (0.2-1.0); URINE WBC 53 /uL (0-25.8)
[2021-01-11 19:34] LABS: HCG,QUALITATIVE URINE Negative
[2021-01-11 19:49] LABS: CALCIUM 8.6 mg/dL (8.5-10.1)
[2021-01-11 19:50] LABS: ALBUMIN 3.6 g/dl (3.4-5.0); BLOOD UREA NITROGEN 14.2 mg/dL (7-18)
[2021-01-11 19:53] LABS: CREATININE 0.6 mg/dL (0.55-1.3)
[2021-01-11 19:54] LABS: BILIRUBIN,TOTAL 0.6 mg/dL (0.2-1); TOT PROT 7.6 g/dl (6.4-8.2)
[2021-01-11] MEDS ORDERED: PANTOPRAZOLE SODIUM 40 MG VIAL IVPB ONE (21:18)
[2021-01-11] MEDS ORDERED: morphine CARPU-JECT 4 MG/1 ML DISP.SYRIN IVPUSH ONE (21:18)
[2021-01-11] MEDS ORDERED: morphine SULFATE 4 MG/ML VIAL ONE (21:37)
[2021-01-11] MEDS ORDERED: PANTOPRAZOLE SODIUM 40 MG/100 ML BAG IVPB ONE (21:37)
[2021-01-12 00:03] VITALS: BP 108/75; PULSE 20
== END 2021-01-12 00:03 | disposition home or self-care (01) ==
LOC: JER 17:35
PROC: 3E033GC Introduction of Other Therapeutic Substance into Peripheral Vein, Percutaneous Approach (ICD-10-PCS; principal; 2021-01-11)
PROC: 3E033NZ Introduction of Analgesics, Hypnotics, Sedatives into Peripheral Vein, Percutaneous Approach (ICD-10-PCS; 2021-01-11)
PROC: 3E033GC Introduction of Other Therapeutic Substance into Peripheral Vein, Percutaneous Approach (ICD-10-PCS; 2021-01-11)
PROC: 3E033GC Introduction of Other Therapeutic Substance into Peripheral Vein, Percutaneous Approach (ICD-10-PCS; 2021-01-11)
PROC: 3E0337Z Introduction of Electrolytic and Water Balance Substance into Peripheral Vein, Percutaneous Approach (ICD-10-PCS; 2021-01-11)
DX: R10.13 Epigastric pain (principal); K29.00 Acute gastritis without bleeding
CPT/HCPCS: 36415; 76705-TC; 80053; 81003; 83690; 84703; 85025; 87077; 87086; 99284-25

== ENCOUNTER 2021-05-05 17:09 | Emergency (ER) | payer OTHER ==
[2021-05-05 17:17] VITALS: BP 110/75; PULSE 85; TEMP 97; BMI 27.3
[2021-05-05 20:30] LABS: URINE APPEARANCE CLEAR; URINE BILIRUBIN NEGATIVE (NEGATIVE); URINE COLOR YELLOW; URINE GLUCOSE (UA) NEGATIVE (NEGATIVE); URINE KETONE TRACE (NEGATIVE); URINE LEUK ESTERASE NEGATIVE (NEGATIVE); URINE NITRITE NEGATIVE (NEGATIVE); URINE PROTEIN NEGATIVE (NEGATIVE)
[2021-05-05 20:47] LABS: ALBUMIN 3.9 g/dl (3.4-5.0)
[2021-05-05 20:51] LABS: CREATININE 0.6 mg/dL (0.55-1.3)
[2021-05-05 20:52] LABS: BILIRUBIN,TOTAL 0.2 mg/dL (0.2-1); TOT PROT 7.7 g/dl (6.4-8.2)
[2021-05-05 22:46] LABS: BASO % 0.7 % (0-2.0); EOS % 2.1 % (0-4.5); HEMATOCRIT 38.6 % (32.4-45.2); HEMOGLOBIN 12.7 GM/dL (10.7-15.3); LYMPH % 36.3 % (8-40); MEAN PLT VOLUME 8.4 fl (7.5-11.1); MONO % 6.2 % (3.8-10.2); NEUT % 54.7 % (42.8-82.8); PLATELET COUNT 255 10^3/uL (134-434); RBC 4.71 M/mm3 (3.60-5.2); RDW 15.2 % (11.6-15.6); WHITE BLOOD COUNT 4.9 K/mm3 (4.0-10.0)
== END 2021-05-05 23:13 | disposition home or self-care (01) ==
LOC: JER 17:09
DX: O20.0 Threatened abortion (principal)
CPT/HCPCS: 36415; 76817-TC; 80053; 81003; 84702; 85025; 87491; 87591; 99284-25